=== PATIENT | male | born 1965 | race Caucasian/White ===

== ENCOUNTER → 2016-11-03 14:29 | Outpatient (CLI) | payer OTHER | END | disposition home or self-care (01) | LOC: D.CT 14:29 | DX: R10.31 Right lower quadrant pain (principal) ==

== ENCOUNTER 2017-03-01 06:31 | Day surgery (SDC) | payer OTHER ==
[~2017-03-01] VITALS: Ht 180.3 cm; Wt 90.7 kg
--- NOTE | ~2017-03-01 | OP ---
PATIENT NAME: VALERIE MARCELO MEDICAL RECORD: [id number] :65 LOCATION:D.[facility] ADMISSION DATE: SURGEON: DIONICIO SOMERS MD DATE OF OPERATION: 03/01/2017 PREOPERATIVE DIAGNOSES: 1. Intractably symptomatic external hemorrhoids. 2. Hematochezia. POSTOPERATIVE DIAGNOSES: 1. Intractably symptomatic external hemorrhoids with posterior lying mature chronic anal fissure. 2. Hematochezia. PROCEDURE: 1. Procedure for prolapse and hemorrhoids. 2. Lateral internal sphincterotomy. SURGEON: Dionicio Somers MD NEURORADIOLOGIST: None. BLOOD LOSS: Minimal. ANESTHESIA: General. COMPLICATIONS: None. The risks, possible complications and alternatives to procedure were explained to the patient. He elects to proceed. The discussion specifically included, but was not limited to, bleeding requiring emergency reoperation, infection, fecal incontinence, postoperative anal stenosis. OPERATIVE COURSE: The patient was conveyed to the operating room electively on 03/01/2017. General anesthesia was induced by the anesthesia staff. The patient was placed in the lithotomy position. The buttocks and perineum were sterilely prepped and draped. U-shaped anal retractors were placed. This revealed the posterior lying anal fissure. A PPH dilator retractor was placed. The clear retractor was sutured to the surrounding anoderm with 2-0 silks. A mucosal pursestring suture of 2-0 Prolene was applied 1 cm cephalad to the clear retractor. The PPH stapling device was inserted with the anvil cephalad to the pursestring suture, which was then tightened and tied. The stapling device was engaged. It was held in place for 2 minutes and then fired. It was then removed. There was an entire donut of lower rectal and internal hemorrhoidal tissue within the stapling device. Bleeding along the anastomotic staple line was controlled with [id number] 3-0 Vicryls. I then placed a U-shaped anal retractor at 9 o'clock. At 3 o'clock, an incision was accomplished over the anal mucosa. I was able to identify the external sphincter as well as the internal sphincter. I was able to divide about 3/4 of the internal sphincter muscle. The incision was closed with a running locking 3-0 Vicryl suture. A combination of Marcaine and steroid preparation were used to infiltrate the perianal tissues. Gelfoam was applied OPERATIVE REPORT [id number] VALERIE MARCELO within the anus and lower rectum. A topical anesthetic cream was applied to the external hemorrhoids. The patient was then extubated and conveyed to post-anesthesia care unit where he was in stable condition. He will be dismissed home on [place] as well as Valium and Colace. I will see him in the office in 2-3 weeks. TRANSINT:[id number] Voice Confirmation ID: [id number] DOCUMENT ID: [id number] DIONICIO SOMERS MD CC: JOSE BARTON DO [id number] DICTATION DATE: 03/01/17 1053 STATE FARM AGENT: 03/01/17 1423 [facility] 03/01/17 [id number] [place] [address]
--- NOTE | ~2017-03-01 | HP ---
PATIENT: VALERIE MARCELO MEDICAL RECORD: [id number] ACCOUNT: [id number] LOCATION:[facility] : 65 ADMISSION DATE: 03/01/17 HISTORY AND PHYSICAL EXAMINATION CHIEF COMPLAINT: Hemorrhoids. HISTORY OF PRESENT ILLNESS: The patient has intractably symptomatic external hemorrhoids. Also, hematochezia due to internal hemorrhoidal bleeding. I am going to plan for a procedure for prolapse and hemorrhoids. The risks, possible complications and alternatives to procedure were explained to the patient. He elects to proceed. HOME MEDICATIONS: [place]. ALLERGIES: No known drug allergies. SOCIAL HISTORY: He is a smoker, I have advised him to quit smoking. PAST MEDICAL AND SURGICAL HISTORY: Chronic neck pain; gastroesophageal reflux, which is controlled with pprs-lks-rwrfzhy medicines. REVIEW OF SYSTEMS: Negative for CVA or seizures. Negative for diabetes or thyroid problems. Negative for renal disease or hepatitis. PHYSICAL EXAMINATION: GENERAL: The patient does not appear acutely ill. He does not appear chronically ill. VITAL SIGNS: Reviewed. HEAD: External ears appear normal. EYES: Extraocular movements are intact. NECK: Trachea is midline. CHEST: No intercostal retractions. PULMONARY: Nonlabored, no stridor. ABDOMEN: Nontender. EXTREMITIES: No peripheral cyanosis. INTEGUMENT: No rash, no ulcerations. ANAL: Reveals third-degree internal hemorrhoidal prolapse of the anus. IMPRESSION: 1. Anal prolapse. 2. Intractably symptomatic external hemorrhoids. 3. Hematochezia due to internal hemorrhoidal bleeding. PLAN: Will be procedure for prolapse and hemorrhoids. TRANSINT:[id number] Voice Confirmation ID: [id number] DOCUMENT ID: [id number] HISTORY AND PHYSICAL [id number] VALERIE MARCELO VIK SOMERS MD CC: JOSE BARTON DO [id number] DICTATION DATE: 03/01/17 1056 GRAPHIC DESIGN INTERN: 03/01/17 [id number] [place] [address]
[~2017-03-01 06:31] MED LIST: HYDROCODONE-APA1 TAB PO
[2017-03-01 07:18] VITALS: BP 112/73; Ht 180.3 cm; Wt 90.7 kg
== END 2017-03-01 13:20 | disposition home or self-care (01) ==
LOC: D.OPS 06:31 → D.PAN 08:00 → D.OPS 09:00 → D.PAN 09:00 → D.OPS 13:20
DX: K62.2 Anal prolapse (principal); K64.8 Other hemorrhoids; K64.4 Residual hemorrhoidal skin tags; K60.1 Chronic anal fissure; Z79.891 Long term (current) use of opiate analgesic; F17.200 Nicotine dependence, unspecified, uncomplicated; G89.29 Other chronic pain; M54.2 Cervicalgia; K21.9 Gastro-esophageal reflux disease without esophagitis

== ENCOUNTER → 2017-08-22 13:07 | Outpatient (CLI) | payer OTHER ==
[2017-03-01 07:18] VITALS: BMI 27.9
[~2017-08-22 13:07] MED LIST changes: +ROBAXIN-750750 MG PO
== END | disposition home or self-care (01) ==
LOC: D.NM 13:00
DX: R10.11 Right upper quadrant pain (principal); M25.512 Pain in left shoulder

== ENCOUNTER 2017-09-28 06:54 | Day surgery (SDC) | payer OTHER ==
[~2017-09-28] VITALS: Ht 180.3 cm; Wt 95.3 kg
--- NOTE | ~2017-09-28 | OP ---
PATIENT NAME: VALERIE MARCELO MEDICAL RECORD: [id number] :65 LOCATION:D.OPS ADMISSION DATE: SURGEON: DIONICIO SMOERS MD DATE OF OPERATION: 09/28/2017 PREOPERATIVE DIAGNOSES: 1. Biliary dyskinesia. 2. Three subcutaneous nodules, which were symptomatic and painful. POSTOPERATIVE DIAGNOSES: 1. Biliary dyskinesia. 2. Subcutaneous nodules that are symptomatic due to pain, one is located in the right lower quadrant, two are located in the left flank. 3. Hepatomegaly. PROCEDURES: 1. Laparoscopic cholecystectomy. 2. Intraoperative cholangiography without immediate surgeon interpretation. 3. An 18-gauge core needle liver biopsies. 4. Excision of subcutaneous nodules of the right lower quadrant as well as left flank times 3. SURGEON: Dionicio Somers MD SENIOR C WEB DEVELOPER: None. BLOOD LOSS: Minimal. ANESTHESIA: General. COMPLICATIONS: None. I saw the patient in the holding area. He identified the subcutaneous nodules, which were symptomatic and these were marked with a magic marker. OPERATIVE COURSE: The patient was conveyed to the operating room electively on 09/28/2017. General anesthesia was induced by the anesthesia staff. The abdomen was sterilely prepped and draped. A small skin elizabeth was accomplished in the left upper quadrant. A Veress needle was inserted through the skin elizabeth into the peritoneal cavity. CO2 insufflation was begun. Once a sufficient pneumoperitoneum had been achieved, a 5-mm trocar was inserted through an incision in the right upper quadrant. Two more 5 mm trocars were inserted, one in the epigastrium and one far laterally in the right upper quadrant. A 12-mm trocar was inserted through an incision at the umbilicus. The patient did have a small non-incarcerated umbilical hernia. The indication for liver biopsy was hepatomegaly. Under laparoscopic guidance, I percutaneously accessed the right upper quadrant utilizing an 18-gauge core needle liver biopsy device. Cores were obtained over the convexity of the liver. The biopsy site was made hemostatic with electrocautery. I then advanced the cholangiogram trocar. I punctured the fundus of the gallbladder. I aspirated bile. I then injected dye. Under real time fluoroscopy, cholangiographic images were obtained. These were sent to the radiologist for interpretation. OPERATIVE REPORT [id number] VALERIE MARCELO I aspirated bile. I removed the cholangiogram trocar. The gallbladder was grasped and retracted cephalad. The infundibulum was grasped and retracted laterally. Blunt dissection was begun on the triangle of [place]ot. One cystic artery and 1 cystic duct were identified. These were clipped multiply and divided between clips. The gallbladder was then excised from its bed and the liver. It was placed within an Endobag retrieval device and was withdrawn through the umbilical fascia defect. I replaced the 12-mm trocar and reinsufflated the abdomen. I irrigated and aspirated the right upper quadrant. There was no bleeding even at low pressure of 8. All the trocars were removed and the abdomen desufflated. Utilizing a [id number] 0 Vicryl suture, the umbilical hernia defect was closed as well as the fascial defect at the umbilicus. The umbilical skin was approximated with interrupted 4-0 Vicryl Rapide sutures. The other skin incisions were closed with interrupted intracuticular 3-0 Vicryls. Attention was then turned to excision of the subcutaneous nodules. The right lower quadrant subcutaneous nodule was identified by palpation as well as by the magic marker markings that I had made. An incision was accomplished. Utilizing blunt dissection, I was able to extirpate the nodule, which is likely either a lipoma or an angiolipoma. Surrounding connective tissue was excised in a piecemeal fashion to prevent the mass from recurring. The skin was closed with a single intracuticular 3-0 Vicryl suture. The patient was then placed in the full lateral decubitus position with the right side down. The left flank was sterilely prepped and draped. Both nodules were easily identifiable due to palpation as well as the bains that were still present. Two incisions were made. The nodules were extirpated bluntly. The surrounding connective tissue was excised in a piecemeal fashion to prevent the mass from recurring. The dermis was approximated with interrupted intracuticular 3-0 Vicryls. Benzoin and Steri-Strips were applied. The patient was then extubated and conveyed to the post-anesthesia care unit where he was in stable condition. I will see him in the office in 2-3 weeks. He will be dismissed home on [place] for pain. TRANSINT:[id number] Voice Confirmation ID: [id number] DOCUMENT ID: [id number] DIONICIO SOMERS MD at 1327 CC: [id number] DICTATION DATE: 09/28/17 1210 SEQUINS WINDER: 09/28/17 1238 [facility] [address] [id number]
--- NOTE | ~2017-09-28 | CN ---
PATIENT NAME:VALERIE MERCEDES MEDICAL RECORD: [id number] : 65 LOCATION:D.OPS ADMIT DATE: ACCOUNT: [id number] CONSULTING PHYSICIAN: SHELTON PUTNAM MD REFERRING PHYSICIAN: VIK SOMERS MD DATE OF CONSULTATION: 09/28/2017 Mr. Mercedes, difficult intubation. Upon extubation noted to have some brownish material in his endotracheal tube by Dr. Vik Newell. Dr. Newell obtained chest x-ray postoperatively from the patient's lap alfredito and found that there was a right upper lobe airspace disease. Radiology read out it as either atelectasis or may be early pneumonia. The patient is currently back in the outpatient area with an O2 saturation of 97 to 98 on room air. The patient is asymptomatic, no cough, no shortness of breath. I related to that I did not know if this was preop since patient did not have preoperative chest x-ray. I did not feel that the patient had a significant amount of material upon extubation. It was felt after describing condition to the that the patient developed shortness of breath and/or coughing and/or productive cough, the patient was returned to the Emergency Room for followup chest x-ray. Regardless, the patient is to follow up on 10/03/2017, to follow up for a follow up chest x-ray and for comparison and results are to be forwarded to anesthesia. Discussed with extensively and patient what is the situation and what the followup plan is. I do not feel this is aspiration pneumonia since it appears in the right upper lobe; however, I do feel that the patient needs a followup chest x-ray and/or if the patient becomes symptomatic to return to the Emergency Room. Consulted with Dr. Newell with this particular case, he concurs. TRANSINT:[id number] Voice Confirmation ID: [id number] DOCUMENT ID: [id number] SHELTON PUTNAM MD at 0727 CC: [id number] DICTATION DATE: 09/28/17 1310 SPEECH COACH: 09/28/17 1549 [facility] 09/28/17 [place] [address]
--- NOTE | ~2017-09-28 | HP ---
PATIENT: VALERIE MARCELO MEDICAL RECORD: [id number] ACCOUNT: [id number] LOCATION:[facility] : 65 ADMISSION DATE: 09/28/17 HISTORY AND PHYSICAL EXAMINATION ADDENDUM I saw the patient in the holding area today. There is a history and physical examination on the chart. The history and physical examination is unchanged. The patient has 3 subcutaneous nodules, which are symptomatic that he would like to have removed, one in the right lower quadrant and two on the left flank. I have marked these after he identified this for me. I am planning for laparoscopic cholecystectomy, intraoperative cholangiography, possible liver biopsy, and then excision of these 3 subcutaneous nodules. TRANSINT:[id number] Voice Confirmation ID: [id number] DOCUMENT ID: [id number] VIK SOMERS MD at 1327 CC: [id number] DICTATION DATE: 09/28/17 1201 PLATFORM MATERIAL HANDLING SUPERVISOR: 09/28/17 1214 [facility] [address] [place] [address]
[2017-09-28 07:28] VITALS: BP 121/85; Ht 180.3 cm; Wt 95.3 kg
[2017-09-28 08:41] LABS: HEMATOCRIT 42.8 % (42.0-54.0); HEMOGLOBIN 14.9 g/dL (13.5-17.5); MCH 31.8 pg (26.0-34.0); MCHC 34.8 g/dL (31.0-37.0); MCV 91.3 fL (80.0-100.0); MEAN PLATELET VOLUME 10.1 fL (7.4-10.4); RBC 4.69 10x6/uL (4.20-6.10); RDW 12.4 % (11.5-14.5); WBC 5.8 10x3/uL (4.8-10.8)
== END 2017-09-28 13:50 | disposition home or self-care (01) ==
LOC: D.OPS 06:54 → D.PAN 09:00 → D.OPS 09:30
PROVIDERS: Anesthesiology
DX: K80.10 Calculus of gallbladder with chronic cholecystitis without obstruction (principal); R16.0 Hepatomegaly, not elsewhere classified; D17.1 Benign lipomatous neoplasm of skin and subcutaneous tissue of trunk; K42.9 Umbilical hernia without obstruction or gangrene; Z01.812 Encounter for preprocedural laboratory examination

== ENCOUNTER → 2017-10-03 10:02 | Outpatient (CLI) | payer OTHER ==
[2017-09-28 07:28] VITALS: BMI 29.3
== END | disposition home or self-care (01) ==
LOC: D.RAD 10:00
DX: R93.5 Abnormal findings on diagnostic imaging of other abdominal regions, including retroperitoneum (principal)